=== PATIENT | male | born 1965 | race Caucasian/White ===

== ENCOUNTER → 2016-11-11 | Outpatient (CLI) | payer OTHER | LOC: RAD 14:33 | DX: R10.9 Unspecified abdominal pain (principal) | CPT/HCPCS: 74000 ==

== ENCOUNTER → 2017-01-06 | Outpatient (CLI) | payer OTHER | LOC: RAD 14:29 | DX: M25.512 Pain in left shoulder (principal); M25.552 Pain in left hip | CPT/HCPCS: 73030; 73502 ==

== ENCOUNTER → 2020-08-31 | Outpatient (CLI) | payer BC ==
[~2020-08-31] MED LIST: ABILIFY10 MG PO; CLARITIN10 M2 PO; HYDROCODON-ACE1 EAC2 PO; NEURONTIN600 MG PO; RANITIDINE HCL150 M1 PO; WELLBUTRIN PO
[2020-08-31 10:07] LABS: BUN/CREATININE RATIO 9 (0-10)
[2020-09-02 17:08] LABS: CHOLESTEROL, TOTAL 193 mg/dL (100-199); HDL SIZE 8.9 nm (>=9.2); HDL-C 46 mg/dL (>39); LARGE HDL-P 4.6 umol/L (>=4.8); LARGE VLDL-P 4.3 nmol/L (<=2.7); LDL SIZE 21.3 nm (>20.5); LDL SIZE 21.3 nm (>=20.8); LDL-C 121 mg/dL (0-99); LDL-P 1200 nmol/L (<1000); LP-IR SCORE 51 (<=45); SMALL LDL-P 272 nmol/L (<=527); TRIGLYCERIDES 144 mg/dL (0-149); VLDL SIZE 47.8 nm (<=46.6)
== END ==
LOC: LAB 08:41
PROVIDERS: Emergency Medicine
DX: G47.09 Other insomnia (principal); E78.2 Mixed hyperlipidemia; E79.0 Hyperuricemia without signs of inflammatory arthritis and tophaceous disease; R06.02 Shortness of breath
CPT/HCPCS: 36415; 80053

== ENCOUNTER → 2021-01-24 | Outpatient (CLI) | payer OTHER ==
[2021-01-24 11:43] LABS: HEMOGLOBIN 16.3 gm/dl (14.0-17.5); RED BLOOD COUNT 4.98 M/UL (4.20-5.50); WHITE BLOOD COUNT 7.1 K/UL (4.5-11.0)
[2021-01-24 13:42] LABS: BUN/CREATININE RATIO 8 (0-10)
[2021-01-26 15:09] LABS: CHOLESTEROL, TOTAL 159 mg/dL (100-199); HDL SIZE 8.8 nm (>=9.2); HDL-C 47 mg/dL (>39); HDL-P (TOTAL) 34.2 umol/L (>=30.5); LARGE VLDL-P 12.2 nmol/L (<=2.7); LDL SIZE 21.2 nm (>20.5); LDL SIZE 21.2 nm (>=20.8); LDL-C 84 mg/dL (0-99); LDL-P 962 nmol/L (<1000); LP-IR SCORE 72 (<=45); SMALL LDL-P 302 nmol/L (<=527); TRIGLYCERIDES 166 mg/dL (0-149); VLDL SIZE 59.5 nm (<=46.6)
== END ==
LOC: LAB 10:56
PROVIDERS: Nurse Practitioner
DX: R73.9 Hyperglycemia, unspecified (principal); R42 Dizziness and giddiness; E78.5 Hyperlipidemia, unspecified
CPT/HCPCS: 36415; 80053; 80061; 83036; 83704; 84443; 85025

== ENCOUNTER 2022-02-16 04:55 | Emergency (ER) | payer OTHER ==
[2022-02-16 05:41] LABS: HEMOGLOBIN 14.9 gm/dl (14.0-17.5); RED BLOOD COUNT 4.56 M/UL (4.20-5.50); WHITE BLOOD COUNT 8.1 K/UL (4.5-11.0)
[2022-02-16 06:04] LABS: BUN/CREATININE RATIO 15 (0-10)
[2022-02-16] MEDS ORDERED: CEPHALEXIN500 MG PO (07:04)
[2022-02-16] MEDS ORDERED: MEDROL DOSEPAK 24 MG PO (07:04)
== END 2022-02-16 08:10 | disposition home or self-care (01) ==
LOC: ER1 04:55
PROVIDERS: Family Medicine
DX: L03.116 Cellulitis of left lower limb (principal); M54.42 Lumbago with sciatica, left side
CPT/HCPCS: 80053; 82550; 82553; 83880; 84484; 85025; 85379; 96374; 96375; 99283; J1100; J1885

== ENCOUNTER 2022-02-22 04:59 | Emergency (ER) | payer OTHER ==
[~2022-02-22 04:59] MED LIST changes: -HYDROCODON-ACE1 EAC4 PO
[2022-02-22] MEDS ORDERED: HYDROCODON-ACE1 EAC4 PO (05:36)
== END 2022-02-22 06:05 | disposition home or self-care (01) ==
LOC: ER1 04:59
DX: M54.42 Lumbago with sciatica, left side (principal)
CPT/HCPCS: 96372; 99283; J1885

== ENCOUNTER 2022-02-22 08:14 | Emergency (ER) | payer BC, OTHER ==
[~2022-02-22 08:14] MED LIST changes: +HYDROCODON-ACE1 EAC4 PO
== END 2022-02-22 13:45 | disposition short-term general hospital (02) ==
LOC: ER1 08:14
DX: S92.311A Displaced fracture of first metatarsal bone, right foot, initial encounter for closed fracture (principal); S92.321A Displaced fracture of second metatarsal bone, right foot, initial encounter for closed fracture; S92.331A Displaced fracture of third metatarsal bone, right foot, initial encounter for closed fracture; S92.341A Displaced fracture of fourth metatarsal bone, right foot, initial encounter for closed fracture; R10.2 Pelvic and perineal pain; Z88.5 Allergy status to narcotic agent; W22.8XXA Striking against or struck by other objects, initial encounter
CPT/HCPCS: 71045; 72170; 73130; 73590; 73630; 93005; 99284

== ENCOUNTER → 2022-02-22 | Outpatient (CLI) | payer BC, OTHER ==
[~2022-02-22] MED LIST changes: +CEPHALEXIN500 MG PO; +HYDROCODON-ACE1 EAC4 PO; +MEDROL DOSEPAK 24 MG PO
== END ==
LOC: RAD 06:23
DX: M46.1 Sacroiliitis, not elsewhere classified (principal)
CPT/HCPCS: 72220